=== PATIENT | female | born 1955 ===

== ENCOUNTER 2017-01-13 17:57 | Observation (INO) | payer MEDICAID ==
[2017-01-13 17:57] VITALS: BMI 27.9
--- NOTE | 2017-01-13 19:01 | ED PDOC ---
Arrival/HPI - General Chief Complaint: Upper Extremity Problem/Injury Time Seen by Provider: 01/13/17 18:58 Historian: Patient - History of Present Illness Narrative History of Present Illness (Text): 01/13/17 19:01 61 year old female whose past medical history includes hypertension, [place], and TIA presents to the emergency department with left arm swelling and difficulty moving her wrist since 06:30 this morning. Patient also reports blister/rash on the left arm. Patient states she felt fine when going to sleep last night. She states she was not doing any strenuous activities yesterday. Denies burn. Patient also reports chronic hematuria due to kidney stone. Denies dark stool or other bleeding. PMD: Dr. Choudhary Time/Duration: 24 hours Symptom Onset: Sudden Symptom Course: Unchanged Modifying Factors (Text): None Past Medical History - Provider Review Nursing Documentation Reviewed: Yes - Infectious Disease Hx of Infectious Diseases: None - Tetanus Immunization Tetanus Immunization: Unknown - Reproductive Menopause: Yes - Cardiac Hx Hypertension: Yes - Pulmonary Hx Asthma: Yes Hx Chronic Obstructive Pulmonary Disease (COPD): Yes - Psychiatric Hx Anxiety: Yes Hx Depression: Yes Hx Emotional Abuse: No Hx Physical Abuse: No Hx Substance Use: No - Past Surgical History Past Surgical History: Non-Contributing - Surgical History Hx Musculoskeletal Surgery: Yes (back) Other/Comment: bladder sling, hernia - Anesthesia Hx Anesthesia: Yes Hx Anesthesia Reactions: No Hx Malignant Hyperthermia: No - Suicidal Assessment Feels Threatened In Home Enviroment: No Family/Social History - Physician Review Nursing Documentation Reviewed: Yes Family/Social History: Unknown Family HX Smoking Status: Former Smoker Hx Alcohol Use: No Hx Substance Use: No Hx Substance Use Treatment: No Allergies/Home Meds Allergies/Adverse Reactions: Allergies acetaminophen [From Darvocet-N] Allergy (Verified 01/13/17 18:25) RASH ibuprofen [From Motrin] Allergy (Verified 01/13/17 18:25) ANGIOEDEMA pneumococcal vaccine [From Pneumovax 23] Allergy (Verified 01/13/17 18:25) RASH propoxyphene [From Darvocet-N] Allergy (Verified 01/13/17 18:25) RASH motrin Allergy (Uncoded 01/13/17 18:25) RASH Home Medications: Home Meds Medication Instructions Recorded Confirmed Montelukast [Singulair] 10 mg PO DAILY 02/04/12 01/13/17 Tiotropium [Spiriva] 18 mcg IH DAILY 02/04/12 01/13/17 Amitriptyline HCl [Amitriptyline 300 mg PO HS 12/01/14 01/13/17 HCl] Omeprazole [Prilosec] 20 mg PO DAILY 12/01/14 01/13/17 Sucralfate [Carafate Oral Susp] 10 ml PO TID 12/01/14 01/13/17 ALPRAZolam HALF TABLET [Xanax HALF 0.5 mg PO HS 01/13/17 01/13/17 TABLET] Brinzolamide [Azopt 15 ml] 1 drop OU BID 01/13/17 01/13/17 Doxepin [Sinequan] 75 mg PO DAILY 01/13/17 01/13/17 Furosemide [Lasix] 40 mg PO BID 01/13/17 01/13/17 Latanoprost 0.005% Opht [XALATAN 1 drp 01/13/17 2.5 Ml] Losartan Potassium 100 mg PO DAILY 01/13/17 01/13/17 Metoclopramide [Reglan] 10 mg PO HS 01/13/17 01/13/17 Metoprolol Tartrate [Lopressor] 100 mg PO DAILY 01/13/17 01/13/17 Mirtazapine [Remeron Soltab] 45 mg PO HS 01/13/17 01/13/17 Ranolazine [Ranexa] 1,000 mg PO BID 01/13/17 01/13/17 Spironolactone [Aldactone] 25 mg PO DAILY 01/13/17 01/13/17 hydrALAZINE [hydralazine 50 mg PO DAILY 01/13/17 01/13/17 Hydrochloride] Review of Systems - Physician Review All systems were reviewed & negative as marked: Yes - Review of Systems Gastrointestinal: absent: Stool Changes, Hematochezia, Hematemesis Genitourinary Female: Hematuria (chronic as per patient) Musculoskeletal: Other (Left arm swelling) Skin: Skin Lesions Neurological: absent: Headache, Dizziness, Focal Weakness, Facial Droop Physical Exam - Physical Exam Narrative Physical Exam (Text): Constitutional: No acute distress. Head: Normocephalic. Atraumatic. Eyes: PERRL. ENT: Moist mucous membranes. Neck: Supple. Cardiovascular: Regular rate. Chest: No tenderness. Respiratory: Clear to auscultation bilaterally. GI: Soft. Nontender. Nondistended. Back: No CVA tenderness. Musculoskeletal: Fusiform swelling on entire left upper extremity including hand and arm. Skin: Non blanching macular erythematous lesions on left upper arm. Clear fluid filled bullae on proximal forearm. 2 linear lesions on left upper arm. Hands equally warm. Good radial pulses. Neurologic: Alert, no focal deficit. Wrist drop. Vital Signs Reviewed: Yes Vital Signs Temp Pulse Resp BP Pulse Ox 01/13/17 20:00 86 16 110/75 98 01/13/17 18:13 98.8 F 88 20 109/72 98 Temperature: Afebrile Blood Pressure: Normal Pulse: Regular Respiratory Rate: Normal Appearance: Positive for: Well-Appearing, Non-Toxic Mental Status: Positive for: Alert and Oriented X 3 Medical Decision Making ED Course and Treatment: Impression: 61 year old female whose past medical history includes hypertension , [place], and TIA presents to the emergency department with left arm swelling and difficulty moving her wrist since 06:30 this morning. Plan: -- Ultrasound, Chest X-ray -- Reassess and disposition Prior Visits: Notes and results from previous visits were reviewed. Patient last seen in ED on 12/01/16 for left hand and ankle swelling and discharged home. Progress Notes: - Medication Orders Current Medication Orders: Potassium Chloride (Potassium Chloride 10 Meq/100 Ml) 10 meq in 100 mls @ 100 mls/hr IVPB ONCE ONE Stop: 01/13/17 22:41 Discontinued Medications Morphine Sulfate (Morphine) 1 mg IVP STAT STA Stop: 01/13/17 21:50 Potassium Chloride (K-Dur 20 Meq Er Tab) 40 meq PO STAT STA Stop: 01/13/17 21:43 ED OBSERVATION Date of observation admission: 01/13/17 Time of observation admission: 19:00 - Observation admission statement Patient is being placed in observation because:: wrist drop, arm swelling - Goals of Observation Goals of observation are:: doppler imaging, lab results - Progress Note Progress Note: 0 Difficulty with blood draw. Will send to doppler first. 2099 Doppler negative for DVT as per US ecg technician. Labs drawn, IV placed. Pending labs. 2199 Labs reveal hypokalemia, possible cause of wrist drop? Will supplement with IV and PO. Patient with sunburn to chest, apparently went to pool 3 days ago. Rash lesions on arm also seem apparent within sunburn bilaterally and also on L sided abdomen. Patient also reports a spontaneous bulla on the R sided neck in the past. Notes allergy to ibuprofen. Consider bullous pemphigoid? Dr. Talley accepts patient to hospitalist service. - Scribe Statement The provider has reviewed the documentation as recorded by the Mona Rivera Provider Scribe Attestation: All medical record entries made by the Mona were at my direction and personally dictated by me. I have reviewed the chart and agree that the record accurately reflects my personal performance of the history, physical exam, medical decision making, and the department course for this patient. I have also personally directed, reviewed, and agree with the discharge instructions and disposition. Disposition/Present on Arrival - Present on Arrival Any Indicators Present on Arrival: No History of DVT/PE: No History of Uncontrolled Diabetes: No Urinary Catheter: No History of Decub. Ulcer: No History Surgical Site Infection Following: None - Disposition Have Diagnosis and Disposition been Completed?: Yes Diagnosis: Hypokalemia, Arm swelling, Rash, Bullae, Wrist drop Disposition: HOSPITALIZED Disposition Time: 22:05 Patient Plan: Admission Condition: FAIR
[2017-01-13 20:27] LABS: URINE BILIRUBIN NEGATIVE (NEGATIVE); URINE BLOOD MODERATE (NEGATIVE); URINE GLUCOSE (UA) NEGATIVE (NEGATIVE); URINE LEUKOCYTE ESTERASE LARGE Leu/uL (NEGATIVE); URINE NITRATE POSITIVE (NEGATIVE); URINE PROTEIN TRACE mg/dL (<30 mg/dL); URINE UROBILINOGEN 0.2 E.U./dL (<1 E.U./dL)
[2017-01-13 20:32] LABS: URINE COLOR YELLOW (YELLOW)
[2017-01-13 20:33] LABS: URINE APPEARANCE CLOUDY (CLEAR)
[2017-01-13 20:40] LABS: URINE BACTERIA MANY (NEG); URINE RBC 0 - 2 /hpf (0-2)
[2017-01-13 21:07] LABS: BASO # 0.02 K/mm3 (0.0-2.0); BASO % 0.2 % (0.0-3.0); EOS # 0.1 (0.0-0.7); EOS % 1.6 % (1.5-5.0); GRAN # 4.99 (1.4-6.5); GRAN % 60.6 % (50.0-68.0); LYMPH # 2.4 (1.2-3.4); LYMPH % 29.2 % (22.0-35.0); MEAN CELL VOLUME 82.5 fL (80.0-105.0); MEAN CORPUSCULAR HEMOGLOBIN 27.6 pg (25.0-35.0); MEAN CORPUSCULAR HGB CONC 33.4 g/dl (31.0-37.0); MEAN PLATELET VOLUME 9.5 fl (7.0-11.0); MONO # 0.7 (0.1-0.6); MONO % 8.4 % (1.0-6.0); PLATELET COUNT 244 10^3/uL (120.0-450.0); RBC 4.35 10^6/uL (3.5-6.1); RED CELL DISTRIBUTION WIDTH 14.3 % (11.5-14.5); WHITE BLOOD COUNT 8.2 10^3/ul (4.5-11.0)
[2017-01-13 21:19] LABS: ALB/GLOB RATIO 1.1 (1.1-1.8); ALBUMIN 4.2 g/dL (3.0-4.8); ALT/SGPT 32 U/L (7-56); AST/SGOT 42 U/L (15-39); BLOOD UREA NITROGEN 7 mg/dL (7-21); CALCIUM 8.6 mg/dL (8.4-10.5); GFR AFRICAN-AMERICAN > 60; GFR NON-AFRICAN AMERICAN > 60
[2017-01-13 21:24] LABS: INR 1.19 (0.93-1.08); PARTIAL THROMBOPLASTIN TIME 29.5 Seconds (23.7-30.8); PROTHROMBIN TIME 12.9 Seconds (9.9-11.8)
[2017-01-13] MEDS ORDERED: Potassium Chloride 20 mEq ER Tab PO STA (21:42)
[2017-01-13] MEDS ORDERED: Morphine 2 mg/ml ISec IVP STA (21:49)
--- NOTE | 2017-01-13 23:33 | CP.PCM.HP ---
<SAURABH DINH - Last Filed: 01/13/17 23:47> History of Present Illness - History of Present Illness History of Present Illness: Pt is a 61 F with pMHx of HTN, MN, TIA, and chronic hematuria 2/2 kidney stones presents with left UE swelling, rash (UE and abdomen), blisters, as well as left wrist weakness first noted at 6:30am this morning. Pt reports minor pain at site of the blisters. Pt states past history of bullae on the left side of her neck approximately 3 months ago, in which she saw a aircraft fueler and was treated with a topical cream. Pt denied any symptoms the night prior and denied burn and does not recall contact with any objects that could cause an allergic reaction. Of note, the patient went swimming on 01/10/17, and reports redness on her chest likely due to sunburn. Pt denied n/v/f, CP, SOB, or abdominal pain. PMHx: HTN, MN, TIA, kidney stones Surg: Bladder sling, hiatal hernia repair, hip replacement, hysterectomy Social: former smoker, denied alcohol, denied illicit drug use FHx: Alzheimer's, MN Present on Admission - Present on Admission Any Indicators Present on Admission: No Review of Systems - Constitutional Constitutional: absent: Chills, Fever, Malaise, Weight Loss, Weakness - EENT Eyes: absent: Blurred Vision, Change in Vision, Photophobia Ears: absent: Decreased Hearing, Abnormal Hearing Nose/Mouth/Throat: absent: Epistaxis, Nasal Congestion, Nasal Discharge - Cardiovascular Cardiovascular: absent: Chest Pain, Dyspnea, Edema, Orthopnea, Palpitations, Rapid Heart Rate, Slow Heart Rate, Syncope - Respiratory Respiratory: absent: Cough, Dyspnea, Hemoptysis - Gastrointestinal Gastrointestinal: absent: Abdominal Pain, Change in Bowel Habits, Change in Stool Character, Constipation, Diarrhea - Genitourinary Genitourinary: Dysuria, Hematuria. absent: Difficulty Urinating - Musculoskeletal Musculoskeletal: absent: Abnormal Gait, Joint Swelling, Muscle Weakness, Stiffness, Tingling - Integumentary Integumentary: As Per HPI, Erythema, Rash, Swelling Additional comments: Blisters - Neurological Neurological: absent: Dizziness, Numbness, Focal Weakness Past Patient History - Infectious Disease Hx of Infectious Diseases: None - Tetanus Immunizations Tetanus Immunization: Unknown - Past Social History Smoking Status: Former Smoker - CARDIAC Hx Hypertension: Yes - PULMONARY Hx Asthma: Yes Hx Chronic Obstructive Pulmonary Disease (COPD): Yes - PSYCHIATRIC Hx Anxiety: Yes Hx Depression: Yes Hx Emotional Abuse: No Hx Physical Abuse: No Hx Substance Use: No - SURGICAL HISTORY Hx Musculoskeletal Surgery: Yes (back) Other/Comment: bladder sling, hernia - ANESTHESIA Hx Anesthesia: Yes Hx Anesthesia Reactions: No Hx Malignant Hyperthermia: No Meds Allergies/Adverse Reactions: Allergies Allergy/AdvReac Type Severity Reaction Status Date / Time acetaminophen Allergy RASH Verified 01/13/17 18:25 [From Darvocet-N] ibuprofen [From Motrin] Allergy ANGIOEDEMA Verified 01/13/17 18:25 pneumococcal vaccine Allergy RASH Verified 01/13/17 18:25 [From Pneumovax 23] propoxyphene Allergy RASH Verified 01/13/17 18:25 [From Darvocet-N] motrin Allergy RASH Uncoded 01/13/17 18:25 Physical Exam - Head Exam Head Exam: ATRAUMATIC, NORMOCEPHALIC - Eye Exam Eye Exam: EOMI, Normal appearance, PERRL - ENT Exam ENT Exam: Mucous Membranes Moist - Neck Exam Neck exam: Positive for: Full Rom - Respiratory Exam Respiratory Exam: Clear to Auscultation Bilateral. absent: Rales, Rhonchi, Wheezes - Cardiovascular Exam Cardiovascular Exam: RRR, +S1, +S2. absent: Diastolic murmur, Gallop, Rubs, Systolic Murmur - GI/Abdominal Exam GI & Abdominal Exam: Soft. absent: Distended, Guarding, Rebound, Tenderness Additional comments: Linear rash noted on mid abdomen - Extremities Exam Extremities exam: Positive for: full ROM, pedal pulses present. Negative for: joint swelling Additional comments: palpable b/l radial pulses, LUE swelling with bullae on medial forearm and linear rash on medial upper arm/forearm - Neurological Exam Neurological exam: Alert, Motor Sensory Deficit (Left wrist/hand weakness 2/5, decreased sensation in left hand and forearm), Oriented x3, Reflexes Normal - Skin Skin Exam: Rash Additional comments: Linear rash on LUE and abdomen; bullae and swelling on LUE. Results - Vital Signs Recent Vital Signs: Last Vital Signs Temp 98.8 F 01/13/17 18:13 Pulse 82 01/13/17 23:07 Resp 18 07/07/17 23:07 BP 125/60 01/13/17 23:07 Pulse Ox 98 01/13/17 23:07 - Labs Result Diagrams: 01/13/17 20:50 01/13/17 20:50 Assessment & Plan - Assessment and Plan (Free Text) Assessment: 61 yo F with pMHx of HTN, MN, TIA, and kidney stones admitted for dermatitis, left wrist drop, hypokalemia, and UTI. 1. Dermatitis -Consult dermatology -Hydrocortisone 2.5% topical applied to affected area -Morphine 1 mg q6h for pain 2. Hypokalemia -K 2.8, Mg 2.0 -KCl 40 mEq PO q4h x2 -Reassess K in AM 3. UTI -Rocephin 1g IV q24h -UA positive for Nitrates/Leuk esterase -Urine and blood cultures pending 4. Left wrist drop -UE US negative for DVT -Possibly due to LUE swelling 5. GI/DVT PPx -HSQ -Protonix Case was seen and discussed in detail with Dr. Talley. <Malini Talley - Last Filed: 01/14/17 02:07> Results - Vital Signs Recent Vital Signs: Last Vital Signs Temp 98.8 F 01/13/17 18:13 Pulse 82 01/13/17 23:07 Resp 18 01/13/17 23:07 BP 125/60 01/13/17 23:07 Pulse Ox 98 01/13/17 23:07 - Labs Result Diagrams: 01/13/17 20:50 01/13/17 20:50 Attending/Attestation - Attestation I have personally seen and examined this patient.: Yes I have fully participated in the care of the patient.: Yes I have reviewed all pertinent clinical information: Yes Notes (Text): 01/14/17 02:06 Patient was seen when she was in [id number]. Agree with history , physical examination, assessment and plan. Gives family history of HTN, [place], colon cancer , prostate cancer.
[2017-01-14] MEDS: Potassium Chloride 20 mEq ER Tab PO SCH ×2 (00:35→03:00)
[2017-01-14] MEDS: Morphine 2 mg/ml ISec IVP PRN ×4 (02:59→23:35)
[2017-01-14 07:19] LABS: BLOOD UREA NITROGEN 7 mg/dL (7-21); CALCIUM 8.2 mg/dL (8.4-10.5); GFR AFRICAN-AMERICAN > 60; GFR NON-AFRICAN AMERICAN > 60
[2017-01-14 08:07] LABS: HEMOGLOBIN 10.8 gm/dL (12.0-16.0); MEAN CORPUSCULAR HEMOGLOBIN 27.4 pg (25.0-35.0); MEAN CORPUSCULAR HGB CONC 33.4 g/dl (31.0-37.0); MEAN PLATELET VOLUME 9.5 fl (7.0-11.0); PLATELET COUNT 241 10^3/uL (120.0-450.0); RBC 3.94 10^6/uL (3.5-6.1); RED CELL DISTRIBUTION WIDTH 14.2 % (11.5-14.5); WHITE BLOOD COUNT 6.1 10^3/ul (4.5-11.0)
--- NOTE | 2017-01-14 08:34 | RAD ---
HISTORY: L arm swelling and wrist drop COMPARISON: 06/27/2016 FINDINGS: LUNGS: No active pulmonary disease. PLEURA: No significant pleural effusion identified, no pneumothorax apparent. CARDIOVASCULAR: Normal. OSSEOUS STRUCTURES: No significant abnormalities. VISUALIZED UPPER ABDOMEN: Normal. OTHER FINDINGS: None. IMPRESSION: No active disease.
[2017-01-14] MEDS: cefTRIAXone 1 gm 1 GM/100 ML BAG IVPB SCH (09:39)
[2017-01-14] MEDS: Tiotropium 18 mcg Cap For Inhalation IH SCH (09:40)
[2017-01-14] MEDS ORDERED: cefTRIAXone 1 gm in NS 100ml IVPB SCH (10:00)
[2017-01-14] MEDS ORDERED: cefTRIAXone (Rocephin) 2 gm Inj IVPB SCH (10:00)
[2017-01-14] MEDS ORDERED: Non Formulary Medication (Ranolazine [Ranexa] 1,000 MG) PO SCH (10:00)
[2017-01-14] MEDS: BRINZOLAMIDE OU SCH ×2 (10:00→18:32)
[2017-01-14] MEDS: Doxepin HCL 10 mg/mL ORAL SOLUTION PO SCH (10:00)
[2017-01-14 11:14] LABS: EOSINOPHIL 2 % (0.0-3.0); GIANT PLATELETS PRESENT; LARGE PLATELETS PRESENT; LYMPHOCYTE 33 % (22.0-35.0); MONOCYTE 2 % (1.0-6.0); NEUTROPHIL 63 % (50.0-70.0); PLATELET ESTIMATE NORMAL (NORMAL)
[2017-01-14] MEDS ORDERED: Iohexol 350 MG/100 ML VIAL ONE (13:41)
--- NOTE | 2017-01-14 14:11 | CP.PCM.CON ---
History of Present Illness - History of Present Illness History of Present Illness: NEURO CONSULT NOTE: 01/14/17 CHIEF COMPLAINT: LEFT WRIST DROP HPI: This is a 61 F with pMHx of HTN, [place], TIA, and chronic hematuria 2/2 kidney stones presents with left UE swelling, rash (UE and abdomen), blisters, as well as left wrist weakness and found to have an acute left wrist drop. She denies any trauma to her arm or forearm. No history of any heavy metal exposure. No neck pain with radicular symptoms. She denies any sensory loss or extreme pain in the forearm. ROS: 14 POINT REVIEW OF SYMPTOMS IS NEGATIVE PER HPI. ALLERGIES: ACETAMINOPHEN., IBUPROFEN, PNEUMOCOCCAL VACCINE SOCIAL HISTORY: NO ILLICIT DRUG USE, SMOKING, OR ETOH USE. FAMILY: NON CONTRIBUTORY. MEDICATIONS: REVIEWED BY NURSE'S RECONCILIATION SHEET. PAST MEDICAL HISTORY: HTN, TIA, HEMATURIA FROM KIDNEY STONES., SKIN BLISTERS. PHYSICAL EXAM: VITAL SIGNS: REVIEWED BY THE CHART GENERAL EXAM: PATIENT SEEN IN BED, IN NO ACUTE DISTRESS HEENT: PERRLA, EOMI, NECK SUPPLE, NO JVD, NO ADENOPATHY CVS: S1, S2, RRR, NO MURMURS NOTED LUNGS: CLEAR TO AUSCULTATION, NO ADVENTITIOUS SOUNDS ABDOMEN: SOFT AND NONTENDER EXTREMITIES: NO CLUBBING OR CYANOSIS. PP 2+ B/L NEURO: PT IS ALERT AND ORIENTED TO PERSON, PLACE, AND YEAR. , RECALL TO 5 MINUTES 3/3, SPEECH IS FLUENT WITHOUT ERRORS, CN II-XII INTACT, MOTOR EXAM: NORMAL TONE, NORMAL BULK OF MUSCLE, MOVES ALL EXTREMITIES EQUALLY, NO PRONATOR DRIFT SEEN EXCEPT ACTIVE LEFT WRIST DROP, NO PAIN ON SUPINATION OF LEFT FOREARM. SENSORY EXAM: LIGHT TOUCH, PIN PRICK UP TO CALVES B/L, PROPRIOCEPTION , VIBRATION ARE INTACT B/L DEEP TENDON REFLEXES: 2+ THROUGHOUT EXCEPT DIMINISHED LEFT TRICEPS AND BRACHIORADIALIS REFLEX COMPARED TO RIGHT. COORDINATION: FINGER TO NOSE IS INTACT. HEEL TO ROMANO IS INTACT GAIT: DEFERRED. LABS: REVIEWED BY THE CHART. ASSESSMENT AND PLAN: This is a 61 F with pMHx of HTN, [place], TIA, and chronic hematuria 2/2 kidney stones presents with left UE swelling, rash (UE and abdomen), blisters, as well as left wrist weakness and found to have an acute left wrist drop. She denies any trauma to her arm or forearm. No history of any heavy metal exposure. No neck pain with radicular symptoms. She denies any sensory loss or extreme pain in the forearm. IMPRESSION: LEFT WRIST DROP IS FROM A POSTERIOR INTEROSSEOUS SYNDROME TYPICALLY OCCURS FROM COMPRESSION OF THE THIS DIVISION OF THE RADIAL NERVE PENETRATES THE SUPINATOR MUSCLE WITHIN THE PROXIMAL FOREARM. . 1. WRIST SPLINT 2. HEAVY METAL SCREEN IN LEAD. 3. OUTPATIENT PHYSICAL THERAPY FOR LEFT WRIST DROP AND OUTPATIENT EMG IN MY OFFICE IN 3 WEEKS. 4. PT CAN BE DCED HOME. THANK YOU. Geovanna CARMONA MD Past Patient History - Infectious Disease Hx of Infectious Diseases: None - Tetanus Immunizations Tetanus Immunization: Unknown - Past Social History Smoking Status: Former Smoker - CARDIAC Hx Hypertension: Yes - PULMONARY Hx Asthma: Yes Hx Chronic Obstructive Pulmonary Disease (COPD): Yes - RENAL Hx Chronic Kidney Disease: Yes Hx Kidney Stones: Yes - ENDOCRINE/METABOLIC Hx Diabetes Mellitus Type 2: Yes - MUSCULOSKELETAL/RHEUMATOLOGICAL Hx Falls: No - GENITOURINARY/GYNECOLOGICAL Hx Hematuria: Yes - PSYCHIATRIC Hx Anxiety: Yes Hx Depression: Yes Hx Emotional Abuse: No Hx Physical Abuse: No Hx Substance Use: No - SURGICAL HISTORY Hx Musculoskeletal Surgery: Yes (back) Other/Comment: bladder sling, hernia - ANESTHESIA Hx Anesthesia: Yes Hx Anesthesia Reactions: No Hx Malignant Hyperthermia: No Meds Allergies/Adverse Reactions: Allergies Allergy/AdvReac Type Severity Reaction Status Date / Time acetaminophen Allergy RASH Verified 01/13/17 18:25 [From Darvocet-N] ibuprofen [From Motrin] Allergy ANGIOEDEMA Verified 01/13/17 18:25 pneumococcal vaccine Allergy RASH Verified 01/13/17 18:25 [From Pneumovax 23] propoxyphene Allergy RASH Verified 01/13/17 18:25 [From Darvocet-N] motrin Allergy RASH Uncoded 01/13/17 18:25 - Medications Medications: Current Medications Alprazolam (Xanax) 0.5 mg PO HS [facility] Amitriptyline HCl (Elavil) 300 mg PO HS [facility] Heparin Sodium (Porcine) (Heparin) 5,000 units SC BID [facility] PRN Reason: Protocol Last Admin: 01/14/17 09:40 Dose: 5,000 units Home Med (Home Med) 1 unit PO HS [facility] Hydralazine HCl (Apresoline) 50 mg PO DAILY [facility] Last Admin: 01/14/17 09:40 Dose: 50 mg Hydrocortisone (Cortizone 2.5% Cream) 0 applic TOP BID [facility] Last Admin: 01/14/17 00:36 Dose: 20 applic Ceftriaxone Sodium (Rocephin 1 Gram Ivpb) 1 gm in 100 mls @ 100 mls/hr IVPB DAILY [facility] PRN Reason: Protocol Last Admin: 01/14/17 09:39 Dose: 100 mls/hr Losartan Potassium (Cozaar) 100 mg PO DAILY [facility] Last Admin: 01/14/17 09:40 Dose: 100 mg Metoclopramide HCl (Reglan) 10 mg PO HS [facility] Metoprolol Tartrate (Lopressor) 100 mg PO DAILY [facility] Last Admin: 01/14/17 09:40 Dose: 100 mg Mirtazapine (Remeron) 45 mg PO HS [facility] Montelukast Sodium (Singulair) 10 mg PO HS [facility] Morphine Sulfate (Morphine) 1 mg IVP Q6H PRN PRN Reason: Pain, moderate (4-7) Last Admin: 01/14/17 09:41 Dose: 1 mg Non-Formulary Medication (Brinzolamide [Azopt]) 1 drop OU BID [facility] Non-Formulary Medication (Ranolazine [Ranexa]) 1,000 mg PO BID [facility] Pantoprazole Sodium (Protonix Inj) 40 mg IVP DAILY [facility] Last Admin: 01/14/17 09:40 Dose: 40 mg Spironolactone (Aldactone) 25 mg PO DAILY [facility] Last Admin: 01/14/17 09:40 Dose: 25 mg Tiotropium [place] (Spiriva) 18 mcg IH DAILY [facility] Last Admin: 01/14/17 09:40 Dose: 18 mcg Results - Vital Signs Recent Vital Signs: Last Vital Signs Temp 98.2 F 01/14/17 07:49 Pulse 72 01/14/17 07:49 Resp 20 01/14/17 07:49 BP 122/77 01/14/17 07:49 Pulse Ox 100 01/14/17 07:49 - Labs Result Diagrams: 01/14/17 06:30 01/14/17 06:30 Labs: Laboratory Results - last 24 hr 01/14/17 01/14/17 01/14/17 06:30 06:30 10:30 WBC 6.1 D RBC 3.94 Hgb 10.8 L Hct 32.3 L MCV 82.0 MCH 27.4 MCHC 33.4 RDW 14.2 Plt Count 241 MPV 9.5 Neutrophils % (Manual) 63 Lymphocytes % (Manual) 33 Monocytes % (Manual) 2 Eosinophils % (Manual) 2 Platelet Evaluation Normal Large Platelets Present Giant Platelets Present ESR 39 H Sodium 142 Potassium 3.7 Chloride 109 Carbon Dioxide 25 Anion Gap 12 BUN 7 Creatinine 0.8 Est GFR ( Amer) > 60 Est GFR (Non-Af Amer) > 60 Random Glucose 110 Calcium 8.2 L
--- NOTE | 2017-01-14 15:23 | CT ---
PROCEDURE: CT HEAD WITHOUT CONTRAST. HISTORY: wrist drop COMPARISON: 06/07/2012 TECHNIQUE: Axial computed tomography images were obtained through the head/brain without intravenous contrast. Radiation dose: Total exam DLP = 774 mGy-cm. This CT exam was performed using one or more of the following dose reduction techniques: Automated exposure control, adjustment of the mA and/or kV according to patient size, and/or use of iterative reconstruction technique. FINDINGS: HEMORRHAGE: No intracranial hemorrhage. BRAIN: No mass effect or edema. No atrophy or chronic microvascular ischemic changes. VENTRICLES: Unremarkable. No hydrocephalus. CALVARIUM: Unremarkable. PARANASAL SINUSES: Unremarkable as visualized. No significant inflammatory changes. MASTOID AIR CELLS: Unremarkable as visualized. No inflammatory changes. OTHER FINDINGS: None. IMPRESSION: No acute findings
--- NOTE | 2017-01-14 15:26 | CT ---
PROCEDURE: CT NECK WITH CONTRAST HISTORY: wrist drop COMPARISON: None TECHNIQUE: CT of the neck with intravenous contrast. Coronal and sagittal reformats generated. Intravenous contrast dose: 100 cc of Omni 350 Radiation dose: DLP 310 mGy-cm This CT exam was performed using one or more of the following dose reduction techniques: Automated exposure control, adjustment of the mA and/or kV according to patient size, and/or use of iterative reconstruction technique. FINDINGS: NASOPHARYNX: Unremarkable. SUPRAHYOID NECK: Unremarkable oropharynx, oral cavity, parapharyngeal space and retropharyngeal space. INFRAHYOID NECK: Unremarkable larynx, hypopharynx, and supraglottic space. Vocal cords intact. MASS: None. GLANDS: Parotid and submandibular glands unremarkable. Normal size thyroid gland, without nodule. LYMPH NODES: Normal. No lymphadenopathy. CERVICAL SPINE: No fracture or focal lesion. VASCULAR STRUCTURES: Unremarkable. OTHER FINDINGS: None. IMPRESSION: Unremarkable contrast enhanced CT of the neck.
--- NOTE | 2017-01-14 16:25 | US ---
PROCEDURE: Left upper extremity venous ultrasound HISTORY: Arm pain and swelling. Evaluate for deep venous thrombosis. PHYSICIAN(S): Asa Matta MD. FINDINGS: The visualized leftinternal jugular vein is sonographically normal and compressible. No evidence of obstruction or thrombus is seen. The visualized segments of the left subclavian vein are patent with normal waveforms. No sonographic evidence of obstruction or thrombosis is seen. The visualized deep venous system of the proximal leftupper extremity is sonographically normal and compressible. IMPRESSION: 1. No sonographic evidence for deep venous thrombosis in the visualized segments of the left upper extremity.
--- NOTE | 2017-01-14 16:28 | CP.PCM.PN ---
<ANGEL LUIS BEYER - Last Filed: 01/14/17 16:58> Subjective - Date & Time of Evaluation Date of Evaluation: 01/14/17 Time of Evaluation: 10:30 - Subjective Subjective: Patient was seen and examined bedside. She states that the blisters and L wrist weakness started yesterday morning. The patient states that she went swimming in [place] for January 10. Pt states that 3mos ago, she had similar blisters on her neck (L side) and face, she went to see payment collector who gave her cream for her face. Also states that she had a "mini stroke" 4months ago and [place] [facility] [place] Pt states that she has hx of dizziness and vertigo. Also states that she has frequent episodes of diarrhea with loss of bowel control; states that she sees her urologist who put stimulators in for her complaint of urinary incontinence. Pt denies hiking, travelling, being around others who are sick. Allergies: cipro, colace, motrin, pneumococcal vaccine PMH: HTN. CA, TIA, chronic hematuria 2/2 kidney stones PSH: bladder sling, hiatal hernia repair, hip replacement, hysterectomy SHx: former smoker FHx: HTN, CA, colon cancer Objective - Vital Signs/Intake and Output Vital Signs (last 24 hours): Temp Pulse Resp BP Pulse Ox 98.2 F 72 20 122/77 100 01/14/17 07:49 01/14/17 07:49 01/14/17 07:49 01/14/17 07:49 01/14/17 07:49 Intake and Output: 01/14/17 01/14/17 06:59 18:59 Intake Total 120 Balance 120 - Medications Medications: Current Medications Alprazolam (Xanax) 0.5 mg PO HS [facility] Amitriptyline HCl (Elavil) 300 mg PO HS [facility] Diphenhydramine HCl (Benadryl) 25 mg PO Q8 PRN PRN Reason: Itching / Pruritus Last Admin: 01/14/17 15:23 Dose: 25 mg Heparin Sodium (Porcine) (Heparin) 5,000 units SC BID [facility] PRN Reason: Protocol Last Admin: 01/14/17 09:40 Dose: 5,000 units Home Med (Home Med) 1 unit PO HS [facility] Hydralazine HCl (Apresoline) 50 mg PO DAILY [facility] Last Admin: 01/14/17 09:40 Dose: 50 mg Hydrocortisone (Cortizone 2.5% Cream) 0 applic TOP BID [facility] Last Admin: 01/14/17 10:00 Dose: 1 applic Ceftriaxone Sodium (Rocephin 1 Gram Ivpb) 1 gm in 100 mls @ 100 mls/hr IVPB DAILY [facility] PRN Reason: Protocol Last Admin: 01/14/17 09:39 Dose: 100 mls/hr Losartan Potassium (Cozaar) 100 mg PO DAILY [facility] Last Admin: 01/14/17 09:40 Dose: 100 mg Metoclopramide HCl (Reglan) 10 mg PO HS [facility] Metoprolol Tartrate (Lopressor) 100 mg PO DAILY [facility] Last Admin: 01/14/17 09:40 Dose: 100 mg Mirtazapine (Remeron) 45 mg PO HS [facility] Montelukast Sodium (Singulair) 10 mg PO HS [facility] Morphine Sulfate (Morphine) 1 mg IVP Q6H PRN PRN Reason: Pain, moderate (4-7) Last Admin: 01/14/17 09:41 Dose: 1 mg Non-Formulary Medication (Brinzolamide [Azopt]) 1 drop OU BID [facility] Non-Formulary Medication (Ranolazine [Ranexa]) 1,000 mg PO BID [facility] Pantoprazole Sodium (Protonix Inj) 40 mg IVP DAILY [facility] Last Admin: 01/14/17 09:40 Dose: 40 mg Pantoprazole Sodium (Protonix Ec Tab) 20 mg PO 0600 [facility] Spironolactone (Aldactone) 25 mg PO DAILY [facility] Last Admin: 01/14/17 09:40 Dose: 25 mg Tiotropium [place] (Spiriva) 18 mcg IH DAILY [facility] Last Admin: 01/14/17 09:40 Dose: 18 mcg - Labs Labs: 01/14/17 06:30 01/14/17 06:30 PT 12.9 Seconds (9.9-11.8) H 01/13/17 20:50 INR 1.19 (0.93-1.08) H 01/13/17 20:50 APTT 29.5 Seconds (23.7-30.8) 01/13/17 20:50 - Constitutional Appears: Well, No Acute Distress - Head Exam Head Exam: ATRAUMATIC, NORMOCEPHALIC - Eye Exam Eye Exam: EOMI, Normal appearance, PERRL - ENT Exam ENT Exam: Mucous Membranes Moist, Normal Exam - Neck Exam Neck Exam: Normal Inspection - Respiratory Exam Respiratory Exam: Clear to Ausculation Bilateral, NORMAL BREATHING PATTERN - Cardiovascular Exam Cardiovascular Exam: REGULAR RHYTHM, RRR. absent: Gallop, Rubs, Murmur - GI/Abdominal Exam GI & Abdominal Exam: Soft, Normal Bowel Sounds. absent: Tenderness - Extremities Exam Extremities Exam: absent: Full ROM, Joint Swelling, Pedal Edema Additional comments: LUE limited mobility: unable to adduct L arm due to pain. L wrist is unable to extend. - Back Exam Back Exam: NORMAL INSPECTION - Neurological Exam Neurological Exam: Alert, Awake, Motor Sensory Deficit (sensory is diminished over L dorsal wrist and lateral forearm), Oriented x3. absent: Altered - Psychiatric Exam Psychiatric exam: Normal Affect, Normal Mood - Skin Skin Exam: Normal Color, Vesicles (One large and several smaller blisters over medial L cori-elbow region in dermatomal fashion), Warm. absent: Cyanosis Assessment and Plan - Assessment and Plan (Free Text) Assessment: Ms. Montes is a 61 F with pMHx of HTN, CA, TIA, and chronic hematuria 2/2 kidney stones presents with left UE swelling, rash (UE and abdomen), blisters, as well as left wrist weakness and found to have an acute left wrist drop. She denies any trauma to her arm or forearm. No history of any heavy metal exposure. No neck pain with radicular symptoms. She denies any sensory loss or extreme pain in the forearm. 1. 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 Chinchilla) consulted, recommend: wrist splint, outpt PT and EMG in [address] Chinchilla - [facility] US: no evidence of DVT - CT Head: no acute findings - CTA Neck: no acute findings - ordered lead level, lyme, selenium, zinc, blood and urine cxs, ova and parasite 2. Blisters - ID (Dr. Moya) consulted, recs appreciated - Benadryl 25mg PO Q8 PRN - ESR and CRP elevated 3. Hypokalemia - intiially K 2.8, repleted to 3.7 - monitor K and replete as necessary 4. UTI - UA positive - continue Rocephin Patient was seen, discussed and evaluated with attending, Dr. Afshin Beyer, PGY1 <Nayeli Pepe - Last Filed: 01/14/17 21:47> Objective - Vital Signs/Intake and Output Vital Signs (last 24 hours): Temp Pulse Resp BP Pulse Ox 98 F 76 20 127/94 H 98 01/14/17 16:00 01/14/17 16:00 01/14/17 16:00 01/14/17 16:00 01/14/17 16:00 Intake and Output: 01/14/17 01/15/17 18:59 06:59 Intake Total 300 Balance 300 - Medications Medications: Current Medications Alprazolam (Xanax) 0.5 mg PO HS [facility] Last Admin: 01/14/17 21:39 Dose: 0.5 mg Amitriptyline HCl (Elavil) 300 mg PO HS [facility] Last Admin: 01/14/17 21:39 Dose: 300 mg Diphenhydramine HCl (Benadryl) 25 mg PO Q8 PRN PRN Reason: Itching / Pruritus Last Admin: 01/14/17 15:23 Dose: 25 mg Heparin Sodium (Porcine) (Heparin) 5,000 units SC BID [facility] PRN Reason: Protocol Last Admin: 01/14/17 17:00 Dose: 5,000 units Home Med (Home Med) 1 unit PO HS [facility] Last Admin: 01/14/17 21:38 Dose: 1 unit Hydralazine HCl (Apresoline) 50 mg PO DAILY [facility] Last Admin: 01/14/17 09:40 Dose: 50 mg Hydrocortisone (Cortizone 2.5% Cream) 0 applic TOP BID [facility] Last Admin: 01/14/17 18:31 Dose: 1 applic Ceftriaxone Sodium (Rocephin 1 Gram Ivpb) 1 gm in 100 mls @ 100 mls/hr IVPB DAILY [facility] PRN Reason: Protocol Last Admin: 01/14/17 09:39 Dose: 100 mls/hr Losartan Potassium (Cozaar) 100 mg PO DAILY [facility] Last Admin: 01/14/17 09:40 Dose: 100 mg Metoclopramide HCl (Reglan) 10 mg PO HS [facility] Last Admin: 01/14/17 21:40 Dose: 10 mg Metoprolol Tartrate (Lopressor) 100 mg PO DAILY [facility] Last Admin: 01/14/17 09:40 Dose: 100 mg Mirtazapine (Remeron) 45 mg PO HS [facility] Last Admin: 01/14/17 21:38 Dose: 45 mg Montelukast Sodium (Singulair) 10 mg PO HS [facility] Last Admin: 01/14/17 21:39 Dose: 10 mg Morphine Sulfate (Morphine) 1 mg IVP Q6H PRN PRN Reason: Pain, moderate (4-7) Last Admin: 01/14/17 18:33 Dose: 1 mg Non-Formulary Medication (Brinzolamide [Azopt]) 1 drop OU BID [facility] Last Admin: 01/14/17 18:32 Dose: Not Given Non-Formulary Medication (Ranolazine [Ranexa]) 1,000 mg PO BID [facility] Pantoprazole Sodium (Protonix Inj) 40 mg IVP DAILY [facility] Last Admin: 01/14/17 09:40 Dose: 40 mg Pantoprazole Sodium (Protonix Ec Tab) 20 mg PO 0600 [facility] Spironolactone (Aldactone) 25 mg PO DAILY [facility] Last Admin: 01/14/17 09:40 Dose: 25 mg Tiotropium Eps[place] (Spiriva) 18 mcg IH DAILY [facility] Last Admin: 01/14/17 09:40 Dose: 18 mcg - Labs Labs: 01/14/17 06:30 01/14/17 06:30 PT 12.9 Seconds (9.9-11.8) H 01/13/17 20:50 INR 1.19 (0.93-1.08) H 01/13/17 20:50 APTT 29.5 Seconds (23.7-30.8) 01/13/17 20:50 Attending/Attestation - Attestation I have personally seen and examined this patient.: Yes I have fully participated in the care of the patient.: Yes I have reviewed all pertinent clinical information, including history, physical exam and plan: Yes Notes (Text): 01/14/17 21:46 Patient seen and examined at bedside. labs, vitals and medications noted. case d /w neurology in detail and consult noted. Left wrist splint applied. Imaging reviewed.Plan to obtain ID input and continue topical steroid cream and IV antibiotics for abnormal UA until cultures result. Agree with the plan of care outlined by the resident.
[2017-01-14] MEDS ORDERED: DOXEPIN 75 MG PO SCH ×2 (22:00)
[2017-01-15] MEDS ORDERED: Pantoprazole 20 mg EC Tab PO SCH (06:00)
[2017-01-15] MEDS: Morphine 2 mg/ml ISec IVP PRN ×2 (06:34→15:20)
[2017-01-15 07:25] LABS: HEMOGLOBIN 10.8 gm/dL (12.0-16.0); MEAN CELL VOLUME 82.6 fL (80.0-105.0); MEAN CORPUSCULAR HEMOGLOBIN 26.8 pg (25.0-35.0); MEAN CORPUSCULAR HGB CONC 32.4 g/dl (31.0-37.0); MEAN PLATELET VOLUME 9.7 fl (7.0-11.0); RBC 4.03 10^6/uL (3.5-6.1); RED CELL DISTRIBUTION WIDTH 14.6 % (11.5-14.5); WHITE BLOOD COUNT 5.3 10^3/ul (4.5-11.0)
[2017-01-15 07:31] VITALS: RESP 18
[2017-01-15] MEDS: Doxepin HCL 10 mg/mL ORAL SOLUTION PO SCH (10:00)
[2017-01-15] MEDS ORDERED: DOXEPIN PO SCH (10:00)
[2017-01-15] MEDS: BRINZOLAMIDE OU SCH ×2 (10:00→17:12)
[2017-01-15] MEDS: Tiotropium 18 mcg Cap For Inhalation IH SCH (10:23)
[2017-01-15] MEDS: Non Formulary Medication (Ranolazine [Ranexa] 1,000 MG) PO SCH ×2 (10:24→17:14)
[2017-01-15] MEDS: cefTRIAXone 1 gm 1 GM/100 ML BAG IVPB SCH (10:27)
--- NOTE | 2017-01-15 11:39 | CP.PCM.CON ---
History of Present Illness - History of Present Illness History of Present Illness: 61 year old female with PMH of CAD, history of TIA, nephrolithiasis, HTN, S/P hysterectomy, S/P hip replacement, came in to [facility] complaining of a rash on the left upper extremity and the right lower extremity with small bullae. She states that she had a similar lesion on the neck about 3 months and saw a automobile glass technician who gave her some topical cream. She is also complaining of a left wrist drop which is slowly improving. She states that she had been swimming in a public swimming pool last week. Denies animal contacts, no insect bites, denies tick bites, denies fever or chills, no nausea or vomiting, no chest pain, no SOB, no diarrhea, no dysuria, no abdominal pain, no headache or dizziness. Infectious Diseases consult is requested to further evaluate and manage. Review of Systems - Review of Systems All systems: reviewed and no additional remarkable complaints except (as per HPI ) Past Patient History - Infectious Disease Hx of Infectious Diseases: None - Tetanus Immunizations Tetanus Immunization: Unknown - Past Social History Smoking Status: Former Smoker - CARDIAC Hx Hypertension: Yes - PULMONARY Hx Asthma: Yes Hx Chronic Obstructive Pulmonary Disease (COPD): Yes - RENAL Hx Chronic Kidney Disease: Yes Hx Kidney Stones: Yes - ENDOCRINE/METABOLIC Hx Diabetes Mellitus Type 2: Yes - MUSCULOSKELETAL/RHEUMATOLOGICAL Hx Falls: No - GENITOURINARY/GYNECOLOGICAL Hx Hematuria: Yes - PSYCHIATRIC Hx Anxiety: Yes Hx Depression: Yes Hx Emotional Abuse: No Hx Physical Abuse: No Hx Substance Use: No - SURGICAL HISTORY Hx Musculoskeletal Surgery: Yes (back) Other/Comment: bladder sling, hernia - ANESTHESIA Hx Anesthesia: Yes Hx Anesthesia Reactions: No Hx Malignant Hyperthermia: No Meds Allergies/Adverse Reactions: Allergies Allergy/AdvReac Type Severity Reaction Status Date / Time acetaminophen Allergy RASH Verified 01/13/17 18:25 [From Darvocet-N] ibuprofen [From Motrin] Allergy ANGIOEDEMA Verified 01/13/17 18:25 pneumococcal vaccine Allergy RASH Verified 01/13/17 18:25 [From Pneumovax 23] propoxyphene Allergy RASH Verified 01/13/17 18:25 [From Darvocet-N] motrin Allergy RASH Uncoded 01/13/17 18:25 - Medications Medications: Current Medications Alprazolam (Xanax) 0.5 mg PO HS [facility] Amitriptyline HCl (Elavil) 300 mg PO HS [facility] Diphenhydramine HCl (Benadryl) 25 mg PO Q8 PRN PRN Reason: Itching / Pruritus Heparin Sodium (Porcine) (Heparin) 5,000 units SC BID [facility] PRN Reason: Protocol Last Admin: 01/14/17 09:40 Dose: 5,000 units Home Med (Home Med) 1 unit PO HS [facility] Hydralazine HCl (Apresoline) 50 mg PO DAILY [facility] Last Admin: 01/14/17 09:40 Dose: 50 mg Hydrocortisone (Cortizone 2.5% Cream) 0 applic TOP BID [facility] Last Admin: 01/14/17 00:36 Dose: 20 applic Ceftriaxone Sodium (Rocephin 1 Gram Ivpb) 1 gm in 100 mls @ 100 mls/hr IVPB DAILY [facility] PRN Reason: Protocol Last Admin: 01/14/17 09:39 Dose: 100 mls/hr Losartan Potassium (Cozaar) 100 mg PO DAILY [facility] Last Admin: 01/14/17 09:40 Dose: 100 mg Metoclopramide HCl (Reglan) 10 mg PO HS [facility] Metoprolol Tartrate (Lopressor) 100 mg PO DAILY [facility] Last Admin: 01/14/17 09:40 Dose: 100 mg Mirtazapine (Remeron) 45 mg PO HS [facility] Montelukast Sodium (Singulair) 10 mg PO HS [facility] Morphine Sulfate (Morphine) 1 mg IVP Q6H PRN PRN Reason: Pain, moderate (4-7) Last Admin: 01/14/17 09:41 Dose: 1 mg Non-Formulary Medication (Brinzolamide [Azopt]) 1 drop OU BID [facility] Non-Formulary Medication (Ranolazine [Ranexa]) 1,000 mg PO BID [facility] Pantoprazole Sodium (Protonix Inj) 40 mg IVP DAILY [facility] Last Admin: 01/14/17 09:40 Dose: 40 mg Pantoprazole Sodium (Protonix Ec Tab) 20 mg PO 0600 [facility] Spironolactone (Aldactone) 25 mg PO DAILY [facility] Last Admin: 01/14/17 09:40 Dose: 25 mg Tiotropium [place] (Spiriva) 18 mcg IH DAILY [facility] Last Admin: 01/14/17 09:40 Dose: 18 mcg Physical Exam - Constitutional Appears: Non-toxic, No Acute Distress - Head Exam Head Exam: NORMAL INSPECTION - ENT Exam ENT Exam: Mucous Membranes Moist - Neck Exam Neck exam: Negative for: Lymphadenopathy, Meningismus - Respiratory Exam Respiratory Exam: Decreased Breath Sounds - Cardiovascular Exam Cardiovascular Exam: +S1, +S2 - GI/Abdominal Exam GI & Abdominal Exam: Soft. absent: Tenderness - Skin Additional comments: left upper extremity and right lower extremity with improving erythema and swelling with small bulla noted which is non-tender Results - Vital Signs Recent Vital Signs: Last Vital Signs Temp 98.2 F 01/14/17 07:49 Pulse 72 01/14/17 07:49 Resp 20 01/14/17 07:49 BP 122/77 01/14/17 07:49 Pulse Ox 100 01/14/17 07:49 - Labs Result Diagrams: 01/15/17 06:50 01/14/17 06:30 Labs: Laboratory Results - last 24 hr 01/14/17 01/14/17 01/14/17 06:30 06:30 10:30 WBC 6.1 D RBC 3.94 Hgb 10.8 L Hct 32.3 L MCV 82.0 MCH 27.4 MCHC 33.4 RDW 14.2 Plt Count 241 MPV 9.5 Neutrophils % (Manual) 63 Lymphocytes % (Manual) 33 Monocytes % (Manual) 2 Eosinophils % (Manual) 2 Platelet Evaluation Normal Large Platelets Present Giant Platelets Present ESR 39 H Sodium 142 Potassium 3.7 Chloride 109 Carbon Dioxide 25 Anion Gap 12 BUN 7 Creatinine 0.8 Est GFR ( Amer) > 60 Est GFR (Non-Af Amer) > 60 Random Glucose 110 Calcium 8.2 L Assessment & Plan - Assessment and Plan (Free Text) Plan: Assessment Consider left upper extremity and right lower extremity skin and skin structure infection wrist drop, probably compressive pathology, slowly improving CAD history of TIA nephrolithiasis HTN S/P hysterectomy S/P hip replacement Plan Started patient on Rocephin and Doxycycline; as discussed with Dr. Pepe, the patient can be switched to PO Keflex and PO Doxycycline for another 5-7 days when ready for discharge The patient should follow up with a Health Informatics Instructor and Neurologist as an outpatient
[2017-01-15] MEDS ORDERED: Potassium Chloride 40 mEq/30 ml LIQ UD PO ONE (15:37)
[2017-01-15 17:12] VITALS: PULSE 90; TEMP 98.4; O2SAT 96
--- NOTE | 2017-01-15 17:54 | CP.PCM.DIS ---
<ANGEL LUIS BEYER - Last Filed: 01/15/17 17:30> Provider - Provider Date of Admission: 01/13/17 22:01 Attending physician: Andrsé Will MD Primary care physician: Lily Choudhary DO Time Spent in preparation of Discharge (in minutes): 45 Hospital Course - Lab Results Lab Results: Most Recent Lab Values WBC 5.3 10^3/ul (4.5-11.0) 01/15/17 06:50 RBC 4.03 10^6/uL (3.5-6.1) 01/15/17 06:50 Hgb 10.8 gm/dL (12.0-16.0) L 01/15/17 06:50 Hct 33.3 % (36.0-48.0) L 01/15/17 06:50 MCV 82.6 fL (80.0-105.0) 01/15/17 06:50 MCH 26.8 pg (25.0-35.0) 01/15/17 06:50 MCHC 32.4 g/dl (31.0-37.0) 01/15/17 06:50 RDW 14.6 % (11.5-14.5) H 01/15/17 06:50 Plt Count 259 10^3/uL (120.0-450.0) 01/15/17 06:50 MPV 9.7 fl (7.0-11.0) 01/15/17 06:50 Gran % 60.6 % (50.0-68.0) 01/13/17 20:50 Lymph % (Auto) 29.2 % (22.0-35.0) 01/13/17 20:50 [place] % (Auto) 8.4 % (1.0-6.0) H 01/13/17 20:50 Eos % (Auto) 1.6 % (1.5-5.0) 01/13/17 20:50 Baso % (Auto) 0.2 % (0.0-3.0) 01/13/17 20:50 Gran # 4.99 (1.4-6.5) 01/13/17 20:50 Lymph # 2.4 (1.2-3.4) 01/13/17 20:50 [place] # 0.7 (0.1-0.6) H 01/13/17 20:50 Eos # 0.1 (0.0-0.7) 01/13/17 20:50 Baso # 0.02 K/mm3 (0.0-2.0) 01/13/17 20:50 Neutrophils % (Manual) 63 % (50.0-70.0) 01/14/17 06:30 Lymphocytes % (Manual) 33 % (22.0-35.0) 01/14/17 06:30 Monocytes % (Manual) 2 % (1.0-6.0) 01/14/17 06:30 Eosinophils % (Manual) 2 % (0.0-3.0) 01/14/17 06:30 Platelet Evaluation Normal (NORMAL) 01/14/17 06:30 Large Platelets Present 01/14/17 06:30 Giant Platelets Present 01/14/17 06:30 ESR 39 mm/hr (0.0-20.0) H 01/14/17 10:30 PT 12.9 Seconds (9.9-11.8) H 01/13/17 20:50 INR 1.19 (0.93-1.08) H 01/13/17 20:50 APTT 29.5 Seconds (23.7-30.8) 01/13/17 20:50 Sodium 142 mmol/L (132-148) 01/14/17 06:30 Potassium 5.0 mmol/L (3.6-5.0) 01/15/17 16:45 Chloride 109 mmol/L (95-110) 01/14/17 06:30 Carbon Dioxide 25 mmol/L (21-33) 01/14/17 06:30 Anion Gap 12 (10-20) 01/14/17 06:30 BUN 7 mg/dL (7-21) 01/14/17 06:30 Creatinine 0.8 mg/dL (0.5-1.4) 01/14/17 06:30 Est GFR ( Amer) > 60 01/14/17 06:30 Est GFR (Non-Af Amer) > 60 01/14/17 06:30 Random Glucose 110 mg/dL (70-110) 01/14/17 06:30 Calcium 8.2 mg/dL (8.4-10.5) L 01/14/17 06:30 Magnesium 2.0 mg/dL (1.7-2.2) 01/13/17 20:50 Total Bilirubin 0.6 mg/dL (0.2-1.3) 01/13/17 20:50 AST 42 U/L (15-39) H 01/13/17 20:50 ALT 32 U/L (7-56) 01/13/17 20:50 Alkaline Phosphatase 109 U/L (38-133) 01/13/17 20:50 C-React Prot High Sens > 15.00 mg/L (1.00-3.00) H 01/14/17 10:30 Total Protein 7.9 g/dL (5.8-8.3) 01/13/17 20:50 Albumin 4.2 g/dL (3.0-4.8) 01/13/17 20:50 Globulin 3.7 gm/dL 01/13/17 20:50 Albumin/Globulin Ratio 1.1 (1.1-1.8) 01/13/17 20:50 Urine Color Yellow (YELLOW) 01/13/17 19:03 Urine Appearance Cloudy (CLEAR) 01/13/17 19:03 Urine pH 7.0 (4.7-8.0) 01/13/17 19:03 Ur Specific [place] <= 1.005 (1.005-1.035) 01/13/17 19:03 Urine Protein Trace mg/dL (<30 mg/dL) H 01/13/17 19:03 Urine Glucose (UA) Negative mg/dL (NEGATIVE) 01/13/17 19:03 Urine Ketones Negative mg/dL (NEGATIVE) 01/13/17 19:03 Urine Blood Moderate (NEGATIVE) H 01/13/17 19:03 Urine Nitrate Positive (NEGATIVE) H 01/13/17 19:03 Urine Bilirubin Negative (NEGATIVE) 01/13/17 19:03 Urine Urobilinogen 0.2 E.U./dL (<1 E.U./dL) 01/13/17 19:03 Ur Leukocyte Esterase Large Jaylan/uL (NEGATIVE) H 01/13/17 19:03 Urine RBC 0 - 2 /hpf (0-2) 01/13/17 19:03 Urine WBC 5 - 10 /hpf (0-6) 01/13/17 19:03 Ur Epithelial Cells 1 - 3 /hpf (0-5) 01/13/17 19:03 Urine Bacteria Many (NEG) 01/13/17 19:03 - Hospital Course Hospital Course: Ms. Montes is a 61 F with pMHx of HTN, LA, TIA, and chronic hematuria 2/2 kidney stones presents on 01/13 with left UE swelling, rash (UE and abdomen), blisters, as well as left wrist weakness. Pt reports minor pain at site of the blisters. Pt states past history of bullae on the left side of her neck approximately 3 months ago, in which she saw a sausage cutter and was treated with a topical cream. Pt denied any symptoms the night prior and denied burn and does not recall contact with any objects that could cause an allergic reaction. Of note, the patient went swimming on 01/10/17, at [place] and reports redness on her chest likely due to sunburn. Pt denied n/v/f, CP , SOB, or abdominal pain. Patient has PSHx of spinal fusion (low back), hiatal hernia, bladder sling, R hip replacement, and hysterectomy. Pt is a former smoker. IN ED, pt had hydrocortisone applied to the affected area, and given morphine for pain. Pt was hypokalemic, which she states is a recurrent issue. Potassium was repleted. UA was positive for nitrates/leukocyte esterases and was started on Rocephin. UE U/S was done and showed no evidence of DVT. Patient was transferred to medicine floors for further management and care. Head CT and Neck CTA were ordered, but showed no evidence of active disease. Neurology and ID were consulted. This morning, the patient had no complaints and states that her pain has improved. She denies weakness, headaches, vision changes, chest pain, palpitations, n/v/d, fevers, chills. - Date & Time of H&P Date of H&P: 01/13/17 Time of H&P: 23:20 Discharge Exam - Head Exam Head Exam: NORMAL INSPECTION - Additional Findings Additional findings: - Constitutional Appears: Well, No Acute Distress - Head Exam Head Exam: ATRAUMATIC, NORMOCEPHALIC - Eye Exam Eye Exam: EOMI, Normal appearance, PERRL - ENT Exam ENT Exam: Mucous Membranes Moist, Normal Exam - Neck Exam Neck Exam: Normal Inspection - Respiratory Exam Respiratory Exam: Clear to Ausculation Bilateral, NORMAL BREATHING PATTERN - Cardiovascular Exam Cardiovascular Exam: REGULAR RHYTHM, RRR. absent: Gallop, Rubs, Murmur - GI/Abdominal Exam GI & Abdominal Exam: Soft, Normal Bowel Sounds. absent: Tenderness - Extremities Exam Extremities Exam: absent: Full ROM, Joint Swelling, Pedal Edema Additional comments: LUE mobility has improved, L wrist is unable to extend fully but motor strength 3/4. - Back Exam Back Exam: NORMAL INSPECTION - Neurological Exam Neurological Exam: Alert, Awake, Motor Sensory Deficit (sensory is diminished over L dorsal wrist and lateral forearm, improving), Oriented x3. absent: Altered - Psychiatric Exam Psychiatric exam: Normal Affect, Normal Mood - Skin Skin Exam: Normal Color, Vesicles (One large and several smaller blisters over medial L cori-elbow region in dermatomal fashion, decreased in size and not tender to palpation), Warm. absent: Cyanosis Discharge Plan - Discharge Medications Prescriptions: Cephalexin [cephalexin] 500 mg PO Q12 #10 cap Doxycycline Hyclate [Doryx] 100 mg PO Q12 #10 cap - Follow Up Plan Condition: FAIR Disposition: HOME/ ROUTINE Additional Instructions: 1. Please follow up with your PMD Dr. Lily Choudhary within 2 days for rheumatological and dermatological workup 2. Please follow up with Dr. Alan Patterson for a rheumatological workup within 2 weeks 3. Please follow up with Dr. Hansel Chinchilla for a neurological workup within 3 weeks 4. Meds sent to your [facility] @ [address] [place] [id number]: Doxycycline 100mg twice a day for 5 days Keflex 500mg twice a day for 5 days 5. Please continue wrist exercises, per neurology 6. Please place wrist in wrist splint for support, per neurology 7. Please consider outpatient physical therapy for strength and mobility exercises for L wrist For any urgent complaints, please come to ER for further evaluation. Thank you, Angel Luis Beyer PGY1 Referrals: Lily Choudhary DO [Primary Care Provider] - <Nayeli Pepe - Last Filed: 01/15/17 19:15> Provider - Provider Date of Admission: 01/13/17 22:01 Attending physician: Andrés Will MD Primary care physician: Lily Choudhary DO Hospital Course - Lab Results Lab Results: Most Recent Lab Values WBC 5.3 10^3/ul (4.5-11.0) 01/15/17 06:50 RBC 4.03 10^6/uL (3.5-6.1) 01/15/17 06:50 Hgb 10.8 gm/dL (12.0-16.0) L 01/15/17 06:50 Hct 33.3 % (36.0-48.0) L 01/15/17 06:50 MCV 82.6 fL (80.0-105.0) 01/15/17 06:50 MCH 26.8 pg (25.0-35.0) 01/15/17 06:50 MCHC 32.4 g/dl (31.0-37.0) 01/15/17 06:50 RDW 14.6 % (11.5-14.5) H 01/15/17 06:50 Plt Count 259 10^3/uL (120.0-450.0) 01/15/17 06:50 MPV 9.7 fl (7.0-11.0) 01/15/17 06:50 Gran % 60.6 % (50.0-68.0) 01/13/17 20:50 Lymph % (Auto) 29.2 % (22.0-35.0) 01/13/17 20:50 [place] % (Auto) 8.4 % (1.0-6.0) H 01/13/17 20:50 Eos % (Auto) 1.6 % (1.5-5.0) 01/13/17 20:50 Baso % (Auto) 0.2 % (0.0-3.0) 01/13/17 20:50 Gran # 4.99 (1.4-6.5) 01/13/17 20:50 Lymph # 2.4 (1.2-3.4) 01/13/17 20:50 [place] # 0.7 (0.1-0.6) H 01/13/17 20:50 Eos # 0.1 (0.0-0.7) 01/13/17 20:50 Baso # 0.02 K/mm3 (0.0-2.0) 01/13/17 20:50 Neutrophils % (Manual) 63 % (50.0-70.0) 01/14/17 06:30 Lymphocytes % (Manual) 33 % (22.0-35.0) 01/14/17 06:30 Monocytes % (Manual) 2 % (1.0-6.0) 01/14/17 06:30 Eosinophils % (Manual) 2 % (0.0-3.0) 01/14/17 06:30 Platelet Evaluation Normal (NORMAL) 01/14/17 06:30 Large Platelets Present 01/14/17 06:30 Giant Platelets Present 01/14/17 06:30 ESR 39 mm/hr (0.0-20.0) H 01/14/17 10:30 PT 12.9 Seconds (9.9-11.8) H 01/13/17 20:50 INR 1.19 (0.93-1.08) H 01/13/17 20:50 APTT 29.5 Seconds (23.7-30.8) 01/13/17 20:50 Sodium 142 mmol/L (132-148) 01/14/17 06:30 Potassium 5.0 mmol/L (3.6-5.0) 01/15/17 16:45 Chloride 109 mmol/L (95-110) 01/14/17 06:30 Carbon Dioxide 25 mmol/L (21-33) 01/14/17 06:30 Anion Gap 12 (10-20) 01/14/17 06:30 BUN 7 mg/dL (7-21) 01/14/17 06:30 Creatinine 0.8 mg/dL (0.5-1.4) 01/14/17 06:30 Est GFR ( Amer) > 60 01/14/17 06:30 Est GFR (Non-Af Amer) > 60 01/14/17 06:30 Random Glucose 110 mg/dL (70-110) 01/14/17 06:30 Calcium 8.2 mg/dL (8.4-10.5) L 01/14/17 06:30 Magnesium 2.0 mg/dL (1.7-2.2) 01/13/17 20:50 Total Bilirubin 0.6 mg/dL (0.2-1.3) 01/13/17 20:50 AST 42 U/L (15-39) H 01/13/17 20:50 ALT 32 U/L (7-56) 01/13/17 20:50 Alkaline Phosphatase 109 U/L (38-133) 01/13/17 20:50 C-React Prot High Sens > 15.00 mg/L (1.00-3.00) H 01/14/17 10:30 Total Protein 7.9 g/dL (5.8-8.3) 01/13/17 20:50 Albumin 4.2 g/dL (3.0-4.8) 01/13/17 20:50 Globulin 3.7 gm/dL 01/13/17 20:50 Albumin/Globulin Ratio 1.1 (1.1-1.8) 01/13/17 20:50 Urine Color Yellow (YELLOW) 01/13/17 19:03 Urine Appearance Cloudy (CLEAR) 01/13/17 19:03 Urine pH 7.0 (4.7-8.0) 01/13/17 19:03 Ur Specific [place] <= 1.005 (1.005-1.035) 01/13/17 19:03 Urine Protein Trace mg/dL (<30 mg/dL) H 01/13/17 19:03 Urine Glucose (UA) Negative mg/dL (NEGATIVE) 01/13/17 19:03 Urine Ketones Negative mg/dL (NEGATIVE) 01/13/17 19:03 Urine Blood Moderate (NEGATIVE) H 01/13/17 19:03 Urine Nitrate Positive (NEGATIVE) H 01/13/17 19:03 Urine Bilirubin Negative (NEGATIVE) 01/13/17 19:03 Urine Urobilinogen 0.2 E.U./dL (<1 E.U./dL) 01/13/17 19:03 Ur Leukocyte Esterase Large Jaylan/uL (NEGATIVE) H 01/13/17 19:03 Urine RBC 0 - 2 /hpf (0-2) 01/13/17 19:03 Urine WBC 5 - 10 /hpf (0-6) 01/13/17 19:03 Ur Epithelial Cells 1 - 3 /hpf (0-5) 01/13/17 19:03 Urine Bacteria Many (NEG) 01/13/17 19:03 Attending/Attestation - Attestation I have personally seen and examined this patient.: Yes I have fully participated in the care of the patient.: Yes I have reviewed all pertinent clinical information, including history, physical exam and plan: Yes Notes (Text): 01/15/17 19:13 Patient seen and examined at bedside.Labs, vitals and current orders noted. Patient feels improvement in her symptoms and her left wrist if better flexed today, splint was utilized overnight as well. Pain and itching around the left forearm is much improved. ID consultation appreciated. Discharge plan discussed in depth and remainder of the plan is as outlined by the resident above.
[2017-01-15 19:58] VITALS: BP 141/68
[2017-01-16 17:47] LABS: ZINC 62 mcg/dL (60-130)
[2017-01-17 13:02] LABS: 23 KD (IGG) BAND Nonreactive
== END 2017-01-15 22:00 | disposition home or self-care (01) ==
LOC: ED 17:57 → EROBSV 19:00 → INTOOBSV 22:01 → OBSVTOIN 22:01 → ERH 22:01 → 5RNO 23:24
PROVIDERS: ADMIT Internal Medicine; ATTEND Internal Medicine
DX: M21.332 Wrist drop, left wrist (principal); E87.6 Hypokalemia; L30.9 Dermatitis, unspecified; N20.0 Calculus of kidney; N39.0 Urinary tract infection, site not specified; I10 Essential (primary) hypertension; J44.9 Chronic obstructive pulmonary disease, unspecified; I25.2 Old myocardial infarction; Z87.891 Personal history of nicotine dependence; Z86.73 Personal history of transient ischemic attack (TIA), and cerebral infarction without residual deficits
CPT/HCPCS: 36415; 70450; 70491; 71010; 80048; 80053; 81001; 83655; 83735; 84132; 84255; 84630; 85007; 85025; 85027; 85610; 85651; 85730; 86140; 86617; 86618; 87040; 87086; 87181; 93971; 96361; 96374; 99285; C9113; G0378; J0696; J1644; J2270; J3480; Q9967